=== PATIENT | male | born 1960 | race Caucasian/White ===

== ENCOUNTER → 2017-07-29 | Outpatient (CLI) | payer BC ==
[2017-07-29 18:11] LABS: BASO % 0.5 % (0.0-1.0); EOS # 0.3 10^3/uL (0.0-0.50); EOS % 5.3 % (0.0-3.0); HEMOGLOBIN 15.1 g/dl (14.0-18.0); IMMATURE GRANULOCYTE % 0.3 % (0-3.0); LYMPH # 1.4 10^3/uL (1.5-4.5); LYMPH % 22.6 % (24.0-44.0); MEAN CORPUSCULAR HEMOGLOBIN 30.8 pg (27.0-33.0); MEAN CORPUSCULAR HGB CONC 33.6 g/dl (32.0-36.5); MEAN CORPUSCULAR VOLUME 91.8 fl (80.0-96.0); MONO # 0.6 10^3/uL (0.0-0.8); MONO % 10.3 % (0.0-5.0); NEUTROPHILS # 3.8 10^3/uL (1.8-7.7); PLATELET COUNT, AUTOMATED 210 10^3/uL (150-450); RED CELL DISTRIBUTION WIDTH 13.3 % (11.5-14.5); WHITE BLOOD COUNT 6.2 10^3/uL (4.0-10.0)
[2017-07-29 18:32] LABS: ANION GAP 6 MEQ/L (8-16); BLOOD UREA NITROGEN 17 MG/DL (7-18); CALCIUM LEVEL 8.4 MG/DL (8.5-10.1); CARBON DIOXIDE LEVEL 28 MEQ/L (21-32); CHLORIDE LEVEL 108 MEQ/L (98-107); CHOLESTEROL LEVEL 226 MG/DL (<200); CHOLESTEROL RISK RATIO 3.373 (<5); CREATININE FOR GFR 1.06 MG/DL (0.70-1.30); GLOMERULAR FILTRATION RATE > 60.0 (>56); GLUCOSE, FASTING 104 MG/DL (70-100); HDL CHOLESTEROL 67 MG/DL (>40); LDL CHOLESTEROL 134.4 MG/DL (<100); NON-HDL-C 159 MG/DL; POTASSIUM SERUM 4.6 MEQ/L (3.5-5.1); SODIUM LEVEL 142 MEQ/L (136-145); TRIGLYCERIDES LEVEL 123 MG/DL (<150)
== END ==
LOC: M WUC 09:52
DX: I10 Essential (primary) hypertension (principal)
CPT/HCPCS: 80061

== ENCOUNTER → 2018-03-28 | Outpatient (CLI) | payer BC | LOC: M RAD 10:53 | DX: Z12.2 Encounter for screening for malignant neoplasm of respiratory organs (principal); Z87.891 Personal history of nicotine dependence | CPT/HCPCS: G0297 ==

== ENCOUNTER 2018-06-11 06:33 | Day surgery (SDC) | payer BC ==
[~2018-06-11] VITALS: Ht 180.3 cm; Wt 105.2 kg
[~2018-06-11 06:33] MED LIST: NS 1,000 ML IV ONE; SKEL800T5; VICO5TAB
[2018-06-11] MEDS ORDERED: PROPOFOL 200 MG/20 ML VIAL As Ordered ONE (07:07)
--- NOTE | 2018-06-11 08:32 | ROOR ---
Patient Name: Johnny Mclain Procedure Date: 06/11/2018 8:06 AM Date of : 1960 Age: 58 Room: [facility] Gender: Male Note Status: Finalized Procedure: Colonoscopy Indications: High risk colon cancer surveillance: Personal history of colonic polyps Providers: Brian LUNDY MD Referring MD: OMKAR ROBERTSON MD Requesting Provider: Medicines: Monitored Anesthesia Care Complications: No immediate complications. Procedure: Pre-Anesthesia Assessment: - The heart rate, respiratory rate, oxygen saturations, blood pressure, adequacy of pulmonary ventilation, and response to care were monitored throughout the procedure. The Colonoscope was introduced through the anus and advanced to the cecum, identified by appendiceal orifice and ileocecal valve. The colonoscopy was performed without difficulty. The patient tolerated the procedure well. The quality of the bowel preparation was good. Findings: The perianal and digital rectal examinations were normal. Three sessile polyps were found in the sigmoid colon and cecum. The polyps were diminutive in size. These polyps were removed with a cold snare. Resection and retrieval were complete. Mild sigmoid diverticulosis and small internal hemorrhoids. The exam was otherwise without abnormality on direct and retroflexion views. Impression: - Three diminutive polyps in the sigmoid colon and in the cecum, removed with a cold snare. Resected and retrieved. - Mild sigmoid diverticulosis and small internal hemorrhoids. - The examination was otherwise normal on direct and retroflexion views. Recommendation: - Repeat colonoscopy in 3 - 5 years for surveillance based on pathology results. - Await pathology results. - Telephone endoscopist for pathology results in 2 weeks. Brian Lundy MD Brian LUNDY MD 06/11/2018 8:32:35 AM This report has been signed electronically. Number of Addenda: 0 Note Initiated On: 06/11/2018 8:06 AM Estimated Blood Loss: Estimated blood loss: none.
[2018-06-11 08:50] VITALS: BP 160/99
== END 2018-06-11 09:02 | disposition home or self-care (01) ==
LOC: M OPP 06:33
PROVIDERS: ATTEND Internal Medicine Gastroenterology
DX: D12.5 Benign neoplasm of sigmoid colon (principal); D12.0 Benign neoplasm of cecum; K57.30 Diverticulosis of large intestine without perforation or abscess without bleeding; K64.8 Other hemorrhoids; Z86.010 Personal history of colon polyps

== ENCOUNTER → 2020-07-03 | Outpatient (CLI) | payer BC ==
[~2020-07-03] MED LIST changes: -NS 1,000 ML IV ONE
[2020-07-03 14:53] LABS: ALBUMIN 3.6 GM/DL (3.2-5.2); ALT/SGPT 35 U/L (12-78); BILIRUBIN,TOTAL 0.2 MG/DL (0.2-1.0); BLOOD UREA NITROGEN 21 MG/DL (7-18); CALCIUM LEVEL 8.9 MG/DL (8.8-10.2); CARBON DIOXIDE LEVEL 29 MEQ/L (21-32); CHLORIDE LEVEL 107 MEQ/L (98-107); CHOLESTEROL LEVEL 202 MG/DL (<200); CREATININE FOR GFR 1.14 MG/DL (0.70-1.30); FREE T4 0.81 NG/DL (0.76-1.46); GLOMERULAR FILTRATION RATE > 60.0 (>49); GLUCOSE, FASTING 97 MG/DL (70-100); HDL CHOLESTEROL 54 MG/DL (>40); LDL CHOLESTEROL 107 MG/DL (<100); NON-HDL-C 148 MG/DL; POTASSIUM SERUM 4.6 MEQ/L (3.5-5.1); SODIUM LEVEL 143 MEQ/L (136-145); THYROID STIMULATING HORMONE 0.516 uIU/ML (0.358-3.740); TOTAL PROTEIN 6.5 GM/DL (6.4-8.2); TRIGLYCERIDES LEVEL 204 MG/DL (<150)
--- NOTE | 2020-07-03 19:13 | REP ---
INDICATION: PERSONAL HX OF NICOTINE DEPENDENCE. COMPARISON: Comparison CT chest study 28 March 2018. Comparison chest x-ray July 13, 2015.. TECHNIQUE: Low-dose lung cancer screening study. Axial 3 mm slices are provided at lung only windows. FINDINGS: Digital preliminary administrative law judge radiograph shows tortuosity of the thoracic aorta. The lung santiago are clear. There is no evidence of pulmonary mass, infiltrate, or significant pulmonary nodule. Mild vascular calcification is noted. IMPRESSION: Lung RADS category 1 findings. Repeat screening study indicated in 1 year. <Electronically signed by Tino Wade > 07/03/20 [id number]
== END ==
LOC: M RAD 13:03 → M LAB 13:03
PROVIDERS: ATTEND Nurse Practitioner Family
DX: Z12.2 Encounter for screening for malignant neoplasm of respiratory organs (principal); Z87.891 Personal history of nicotine dependence

== ENCOUNTER → 2021-01-28 | Outpatient (CLI) | payer BC ==
--- NOTE | 2021-01-28 15:50 | REP ---
INDICATION: LOCALIZED SWELLING, MASS AND LUMP, RIGHT UPPER LIMB. COMPARISON: None. TECHNIQUE: Two views of the right clavicle FINDINGS: There is no acute fracture or destructive osseous lesion. The acromioclavicular joint is within normal limits. IMPRESSION: Within normal limits <Electronically signed by Danilo Solis > 01/28/21 [id number]
--- NOTE | 2021-01-28 15:51 | REP ---
INDICATION: LOCALIZED SWELLING, MASS AND LUMP, RIGHT UPPER LIMB. COMPARISON: None. TECHNIQUE: Three views of the right shoulder were performed. FINDINGS: The acromioclavicular and glenohumeral relationships are within normal limits. There is no acute fracture or destructive osseous lesion. IMPRESSION: Within normal limits. If a soft tissue mass is of clinical concern then I would recommend an MRI. <Electronically signed by Danilo Solis > 01/28/21 [id number]
== END ==
LOC: M PLALAB 15:13
PROVIDERS: ATTEND Nurse Practitioner Family
DX: R22.31 Localized swelling, mass and lump, right upper limb (principal)

== ENCOUNTER → 2021-01-29 | Outpatient (CLI) | payer BC ==
[2021-01-29 10:51] LABS: ALBUMIN 3.6 GM/DL (3.2-5.2); ALT/SGPT 33 U/L (12-78); BILIRUBIN,TOTAL 0.8 MG/DL (0.2-1.0); BLOOD UREA NITROGEN 14 MG/DL (7-18); CALCIUM LEVEL 8.8 MG/DL (8.8-10.2); CARBON DIOXIDE LEVEL 26 MEQ/L (21-32); CHLORIDE LEVEL 109 MEQ/L (98-107); CHOLESTEROL LEVEL 227 MG/DL (<200); CHOLESTEROL RISK RATIO 4.365 (<5); GLOMERULAR FILTRATION RATE > 60.0 (>49); GLUCOSE, FASTING 98 MG/DL (70-100); HDL CHOLESTEROL 52 MG/DL (>40); LDL CHOLESTEROL 150 MG/DL (<100); NON-HDL-C 175 MG/DL; SODIUM LEVEL 140 MEQ/L (136-145); TOTAL PROTEIN 6.7 GM/DL (6.4-8.2); TRIGLYCERIDES LEVEL 125 MG/DL (<150)
== END ==
LOC: M PLALAB 07:15
PROVIDERS: ATTEND Nurse Practitioner Family
DX: I10 Essential (primary) hypertension (principal)

== ENCOUNTER → 2021-02-12 | Outpatient (CLI) | payer BC ==
--- NOTE | 2021-02-12 08:42 | REP ---
INDICATION: R SHOULDER MASS/LUMP/R22.31. COMPARISON: Comparison radiographs of the right shoulder are from January 28, 2021. TECHNIQUE: Targeted sonography right shoulder area superior to the clavicle. FINDINGS: Soft tissue sonography in the region of interest over the right clavicle demonstrates a loculated fluid collection with dimensions 1.6 x 0.9 x 1.9 cm overlying a shadowing bony cortex. There is no evidence of Doppler flow. 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 IMPRESSION: Findings most compatible with a 1.9 cm ganglion cyst associated with the AC joint. Clinical follow-up is advised. If further evaluation and confirmation is desired, shoulder MRI study May could be considered. <Electronically signed by Tino Wade > 02/12/21 0897
== END ==
LOC: M WHC 07:14
PROVIDERS: ATTEND Nurse Practitioner Family
DX: R22.31 Localized swelling, mass and lump, right upper limb (principal); M85.411 Solitary bone cyst, right shoulder

== ENCOUNTER → 2021-07-19 | Outpatient (CLI) | payer BC ==
[2021-07-19 12:44] LABS: ALBUMIN 3.7 GM/DL (3.2-5.2); ALT/SGPT 42 U/L (12-78); BILIRUBIN,TOTAL 0.2 MG/DL (0.2-1.0); BLOOD UREA NITROGEN 14 MG/DL (7-18); CALCIUM LEVEL 8.8 MG/DL (8.8-10.2); CARBON DIOXIDE LEVEL 26 MEQ/L (21-32); CHLORIDE LEVEL 106 MEQ/L (98-107); CHOLESTEROL LEVEL 210 MG/DL (<200); CHOLESTEROL RISK RATIO 3.888 (<5); CREATININE FOR GFR 1.14 MG/DL (0.70-1.30); GLOMERULAR FILTRATION RATE > 60.0 (>49); GLUCOSE, FASTING 102 MG/DL (70-100); HDL CHOLESTEROL 54 MG/DL (>40); LDL CHOLESTEROL 133 MG/DL (<100); NON-HDL-C 156 MG/DL; POTASSIUM SERUM 4.4 MEQ/L (3.5-5.1); SODIUM LEVEL 140 MEQ/L (136-145); TOTAL PROTEIN 6.7 GM/DL (6.4-8.2); TRIGLYCERIDES LEVEL 116 MG/DL (<150)
== END ==
LOC: M WUC 09:08
PROVIDERS: ATTEND Nurse Practitioner Family
DX: I10 Essential (primary) hypertension (principal)

== ENCOUNTER → 2021-08-20 | Outpatient (CLI) | payer BC | LOC: M RAD 12:50 | PROVIDERS: ATTEND Nurse Practitioner Family | DX: Z12.2 Encounter for screening for malignant neoplasm of respiratory organs (principal); F17.210 Nicotine dependence, cigarettes, uncomplicated ==

== ENCOUNTER → 2022-03-18 | Outpatient (CLI) | payer BC | LOC: M SOG 08:27 | PROVIDERS: ATTEND Orthopaedic Surgery Adult Reconstructive Orthopaedic Surgery | DX: M25.561 Pain in right knee (principal); Z53.8 Procedure and treatment not carried out for other reasons ==

== ENCOUNTER → 2022-03-25 | Outpatient (CLI) | payer BC | LOC: M OUTALCOH 07:29 | PROVIDERS: ATTEND Psychiatry & Neurology Psychiatry | DX: Z13.39 Encounter for screening examination for other mental health and behavioral disorders (principal) ==

== ENCOUNTER 2022-04-06 07:51 | Outpatient (RCR) | payer BC | END 2022-05-04 | LOC: M OUTALCOH 07:51 | PROVIDERS: ATTEND Psychiatry & Neurology Psychiatry | DX: Z03.89 Encounter for observation for other suspected diseases and conditions ruled out (principal); Z72.0 Tobacco use ==

== ENCOUNTER 2022-05-27 05:57 | Inpatient (IN) | payer BC ==
[~2022-05-27] VITALS: Ht 182.9 cm; Wt 117.2 kg
[2022-05-27 06:48] LABS: BASO % 0.4 % (0.0-1.0); EOS # 0.1 10^3/uL (0.0-0.5); EOS % 1.9 % (0.0-3.0); HEMATOCRIT 41.4 % (42.0-52.0); HEMOGLOBIN 13.7 g/dl (13.5-17.5); LYMPH # 1.6 10^3/uL (1.5-5.0); LYMPH % 22.2 % (24.0-44.0); MEAN CORPUSCULAR HEMOGLOBIN 31.1 pg (27.0-33.0); MEAN CORPUSCULAR HGB CONC 33.1 g/dl (32.0-36.5); MEAN CORPUSCULAR VOLUME 93.9 fl (80.0-96.0); MONO # 0.9 10^3/uL (0.0-0.8); MONO % 11.7 % (2.0-8.0); NEUTROPHILS # 4.7 10^3/uL (1.5-8.5); NEUTROPHILS % 63.4 % (36.0-66.0); PLATELET COUNT, AUTOMATED 185 10^3/uL (150-450); RED BLOOD COUNT 4.41 10^6/uL (4.30-6.10); WHITE BLOOD COUNT 7.4 10^3/uL (4.0-10.0)
[2022-05-27 07:17] LABS: CK-MB VALUE MASS < 1.0 NG/ML (<3.6)
[2022-05-27 07:19] LABS: ALBUMIN 3.2 G/DL (3.2-5.2); ALKALINE PHOSPHATASE 101 U/L (46-116); ALT/SGPT 51 U/L (7.0-40); AST/SGOT 32 U/L (<34); BILIRUBIN,DIRECT < 0.1 MG/DL (<0.4); BILIRUBIN,TOTAL 0.2 MG/DL (0.3-1.2); BLOOD UREA NITROGEN 24 MG/DL (9-23); CALCIUM LEVEL 8.4 MG/DL (8.3-10.6); CARBON DIOXIDE LEVEL 20 MMOL/L (20-31); CHLORIDE LEVEL 111 MMOL/L (98-107); CPK CREATINE PHOSPHOKINASE 43 U/L (46-171); CREATININE FOR GFR 0.91 MG/DL (0.70-1.30); GLOMERULAR FILTRATION RATE > 60.0 (>49); GLUCOSE, FASTING 105 MG/DL (74-106); MB/CK RELATIVE INDEX 2.32 (< OR =4); POTASSIUM SERUM 4.6 MMOL/L (3.5-5.1); SODIUM LEVEL 142 MMOL/L (136-145); TOTAL PROTEIN 5.7 G/DL (5.7-8.2)
[2022-05-27 07:22] LABS: THYROID STIMULATING HORMONE 2.278 uIU/ML (0.55-4.78)
[2022-05-27] MEDS ORDERED: METOPROLOL TART 50 MG TAB PO ONE (07:25)
[2022-05-27] MEDS: METOPROLOL 5 MG/5 ML VIAL IV PRN ×3 (07:40→07:56)
[2022-05-27 07:54] LABS: ETHYL ALCOHOL (ETHANOL) 0.003 % (0.000-0.010)
[2022-05-27] MEDS ORDERED: APIXABAN 5 MG TAB (ELIQUIS) PO ONE (08:35)
[2022-05-27] MEDS ORDERED: FUROSEMIDE 40MG/4ML VIAL IV ONE (08:35)
[2022-05-27] MEDS ORDERED: AMLO1TAB25 PO (08:46)
[2022-05-27] MEDS ORDERED: VENL75TA2 PO (08:46)
[2022-05-27] MEDS ORDERED: HOME MED LIST COMPLETE! XX SCH (08:50)
[2022-05-27] MEDS ORDERED: FUROSEMIDE 40MG/4ML VIAL IV SCH (09:00)
[2022-05-27 09:35] LABS: INR 0.97; PROTHROMBIN TIME 13.1 SECONDS (12.5-14.5)
[2022-05-27 09:36] LABS: PARTIAL THROMBOPLASTIN TIME 29.2 SECONDS (24.8-34.2)
[2022-05-27 09:39] LABS: D-DIMER QUANT 371.79 ng/ml (<500)
[2022-05-27 09:52] LABS: C REACTIVE PROTEIN QUANTITATIV 0.9 MG/DL (<1.0)
[2022-05-27 09:53] LABS: BILIRUBIN,DIRECT 0.1 MG/DL (<0.4)
[2022-05-27 09:55] LABS: ALBUMIN 3.2 G/DL (3.2-5.2); BILIRUBIN,TOTAL 0.3 MG/DL (0.3-1.2); TOTAL PROTEIN 5.9 G/DL (5.7-8.2)
[2022-05-27 09:56] LABS: FERRITIN 139.6 NG/ML (10.5-307.3)
[2022-05-27] MEDS: METOPROLOL 5 MG/5 ML VIAL IV SCH ×3 (11:27→11:55)
[2022-05-27] MEDS ORDERED: METOPROLOL TART 25 MG TABLET PO SCH (12:00)
[2022-05-27] MEDS ORDERED: REMDESIVIR 200 MG in NS 250 ML IV ONE (12:00)
[2022-05-27] MEDS ORDERED: SODIUM CHLORIDE 0.9% INJ 10 ML SYR IV ONE (13:00)
[2022-05-27] MEDS ORDERED: DIGOXIN INJ 0.5 MG/2 ML AMP IV STA (13:09)
[2022-05-27 13:34] LABS: BLOOD UREA NITROGEN 23 MG/DL (9-23); CALCIUM LEVEL 8.7 MG/DL (8.3-10.6); CARBON DIOXIDE LEVEL 23 MMOL/L (20-31); CHLORIDE LEVEL 108 MMOL/L (98-107); CREATININE FOR GFR 1.04 MG/DL (0.70-1.30); GLOMERULAR FILTRATION RATE > 60.0 (>49); GLUCOSE, FASTING 122 MG/DL (74-106); POTASSIUM SERUM 4.8 MMOL/L (3.5-5.1); SODIUM LEVEL 140 MMOL/L (136-145)
[2022-05-27] MEDS ORDERED: diltiaZEM 125 MG in NS 100 ML IV SCH ×3 (15:00→19:55)
[2022-05-27 15:26] VITALS: BP 125/76
[2022-05-27] MEDS: FUROSEMIDE 40MG/4ML VIAL IV SCH ×2 (15:55→20:51)
[2022-05-27 16:00] VITALS: O2SAT 95
[2022-05-27 16:30] VITALS: BP 112/84
[2022-05-27 17:04] VITALS: BP 119/79
[2022-05-27 17:04] LABS: APPEARANCE, URINE MANUAL CLEAR (CLEAR); BILIRUBIN, URINE MANUAL NEGATIVE (NEGATIVE); BLOOD URINE MANUAL NEGATIVE (NEGATIVE); COLOR, URINE MANUAL LT YELLOW (YELLOW); KETONE, URINE MANUAL NEGATIVE (NEGATIVE); LEUKOCYTE ESTERASE, URINE MAN NEGATIVE (NEGATIVE); NITRITE, URINE MANUAL NEGATIVE (NEGATIVE); PROTEIN, URINE MANUAL NEGATIVE (NEGATIVE); UROBILINOGEN, URINE MANUAL NORMAL (NORMAL)
[2022-05-27 17:05] LABS: GLUCOSE, URINE (UA) MANUAL TRACE(50 MG/DL) mg/dL (NEGATIVE)
[2022-05-27 18:00] VITALS: BP 103/51
[2022-05-27 18:33] LABS: BLOOD UREA NITROGEN 26 MG/DL (9-23); CALCIUM LEVEL 8.6 MG/DL (8.3-10.6); CARBON DIOXIDE LEVEL 21 MMOL/L (20-31); CHLORIDE LEVEL 106 MMOL/L (98-107); CREATININE FOR GFR 1.09 MG/DL (0.70-1.30); GLOMERULAR FILTRATION RATE > 60.0 (>49); GLUCOSE, FASTING 254 MG/DL (74-106); POTASSIUM SERUM 4.5 MMOL/L (3.5-5.1); SODIUM LEVEL 141 MMOL/L (136-145)
[2022-05-27 20:00] VITALS: BP 128/84; O2SAT 96
[2022-05-27] MEDS ORDERED: AMIODARONE HCL 150 MG in IV 1 EA IV ONE (20:30)
[2022-05-27] MEDS ORDERED: AMIODARONE HCL 360 MG in IV 1 EA IV SCH (20:40)
[2022-05-27] MEDS: APIXABAN 5 MG TAB (ELIQUIS) PO SCH (20:51)
[2022-05-27] MEDS: DIGOXIN INJ 0.5 MG/2 ML AMP IV SCH (21:09)
[2022-05-28] VITALS (9 sets, daily range): BP systolic 93–130; BP diastolic 37–86; O2SAT 92–95
[2022-05-28 01:08] LABS: BLOOD UREA NITROGEN 26 MG/DL (9-23); CALCIUM LEVEL 8.8 MG/DL (8.3-10.6); CARBON DIOXIDE LEVEL 27 MMOL/L (20-31); CHLORIDE LEVEL 105 MMOL/L (98-107); CREATININE FOR GFR 1.11 MG/DL (0.70-1.30); GLOMERULAR FILTRATION RATE > 60.0 (>49); GLUCOSE, FASTING 134 MG/DL (74-106); POTASSIUM SERUM 4.2 MMOL/L (3.5-5.1); SODIUM LEVEL 141 MMOL/L (136-145)
[2022-05-28] MEDS: AMIODARONE HCL 360 MG in IV 1 EA IV SCH ×2 (03:10→14:54)
[2022-05-28] MEDS: FUROSEMIDE 40MG/4ML VIAL IV SCH (03:10)
[2022-05-28] MEDS: DIGOXIN INJ 0.5 MG/2 ML AMP IV SCH (03:11)
[2022-05-28 06:33] LABS: BILIRUBIN,DIRECT < 0.1 MG/DL (<0.4); DIGOXIN LEVEL 0.8 NG/ML (0.8-2.0)
[2022-05-28 06:41] LABS: ALBUMIN 3.5 G/DL (3.2-5.2); ALKALINE PHOSPHATASE 107 U/L (46-116); ALT/SGPT 53 U/L (7.0-40); AST/SGOT 25 U/L (<34); BILIRUBIN,TOTAL 0.2 MG/DL (0.3-1.2); BLOOD UREA NITROGEN 25 MG/DL (9-23); CALCIUM LEVEL 8.5 MG/DL (8.3-10.6); CARBON DIOXIDE LEVEL 23 MMOL/L (20-31); CHLORIDE LEVEL 106 MMOL/L (98-107); CREATININE FOR GFR 1.07 MG/DL (0.70-1.30); GLOMERULAR FILTRATION RATE > 60.0 (>49); GLUCOSE, FASTING 114 MG/DL (74-106); POTASSIUM SERUM 4.2 MMOL/L (3.5-5.1); SODIUM LEVEL 141 MMOL/L (136-145); TOTAL PROTEIN 6.4 G/DL (5.7-8.2)
[2022-05-28] MEDS ORDERED: DIGOXIN INJ 0.5 MG/2 ML AMP IV ONE ×2 (07:50→14:00)
[2022-05-28] MEDS: APIXABAN 5 MG TAB (ELIQUIS) PO SCH ×2 (08:06→21:57)
[2022-05-28] MEDS: METOPROLOL TART 50 MG TAB PO SCH ×3 (08:12→21:57)
[2022-05-28] MEDS ORDERED: FUROSEMIDE injection 250 MG in D5W 225 ML IV SCH (12:00)
[2022-05-28] MEDS: REMDESIVIR 100 MG in NS 250 ML IV SCH (12:54)
[2022-05-28] MEDS: SODIUM CHLORIDE 0.9% INJ 10 ML SYR IV SCH (13:00)
[2022-05-28 19:09] LABS: CK-MB VALUE MASS < 1.0 NG/ML (<3.6); MAGNESIUM LEVEL 1.9 MG/DL (1.8-2.4)
[2022-05-28 19:10] LABS: BLOOD UREA NITROGEN 32 MG/DL (9-23); CALCIUM LEVEL 8.5 MG/DL (8.3-10.6); CARBON DIOXIDE LEVEL 23 MMOL/L (20-31); CHLORIDE LEVEL 108 MMOL/L (98-107); CREATININE FOR GFR 0.66 MG/DL (0.70-1.30); GLOMERULAR FILTRATION RATE > 60.0 (>49); GLUCOSE, FASTING 125 MG/DL (74-106); POTASSIUM SERUM 4.5 MMOL/L (3.5-5.1); SODIUM LEVEL 142 MMOL/L (136-145)
[2022-05-28 19:11] LABS: CPK CREATINE PHOSPHOKINASE 37 U/L (46-171)
[2022-05-29] VITALS (7 sets, daily range): BP systolic 89–135; BP diastolic 55–91; O2SAT 92–96
[2022-05-29] MEDS: METOPROLOL TART 50 MG TAB PO SCH ×3 (01:13→13:38)
[2022-05-29 05:12] LABS: INR 1.25; PARTIAL THROMBOPLASTIN TIME 33.6 SECONDS (24.8-34.2)
[2022-05-29 05:25] LABS: LDH LACTATE DEHYDROGENASE 173 U/L (120-246)
[2022-05-29 05:26] LABS: BILIRUBIN,DIRECT 0.1 MG/DL (<0.4); DIGOXIN LEVEL 0.7 NG/ML (0.8-2.0)
[2022-05-29 05:30] LABS: FERRITIN 104.5 NG/ML (10.5-307.3)
[2022-05-29 05:37] LABS: ALBUMIN 3.2 G/DL (3.2-5.2); ALKALINE PHOSPHATASE 89 U/L (46-116); ALT/SGPT 46 U/L (7.0-40); AST/SGOT 20 U/L (<34); BILIRUBIN,TOTAL 0.3 MG/DL (0.3-1.2); BLOOD UREA NITROGEN 29 MG/DL (9-23); CARBON DIOXIDE LEVEL 25 MMOL/L (20-31); CHLORIDE LEVEL 106 MMOL/L (98-107); CPK CREATINE PHOSPHOKINASE 31 U/L (46-171); CREATININE FOR GFR 1.13 MG/DL (0.70-1.30); GLOMERULAR FILTRATION RATE > 60.0 (>49); GLUCOSE, FASTING 113 MG/DL (74-106); POTASSIUM SERUM 4.5 MMOL/L (3.5-5.1); SODIUM LEVEL 142 MMOL/L (136-145); TOTAL PROTEIN 5.7 G/DL (5.7-8.2)
[2022-05-29] MEDS ORDERED: DIGOXIN INJ 0.5 MG/2 ML AMP IV STA (08:45)
[2022-05-29] MEDS: NICOTINE 21MG/24HR 1 EA TRANSDERMAL TD SCH (09:00)
[2022-05-29] MEDS: APIXABAN 5 MG TAB (ELIQUIS) PO SCH ×2 (09:14→20:27)
[2022-05-29] MEDS: AMIODARONE 200 MG TAB (PACERONE) PO SCH ×2 (09:14→20:28)
[2022-05-29] MEDS ORDERED: NICOTINE POLACRILEX 2 MG GUM PO ONE (12:00)
[2022-05-29] MEDS: REMDESIVIR 100 MG in NS 250 ML IV SCH (13:38)
[2022-05-29] MEDS: SODIUM CHLORIDE 0.9% INJ 10 ML SYR IV SCH (13:39)
[2022-05-29] MEDS: NICOTINE POLACRILEX 2 MG GUM PO PRN (14:42)
[2022-05-29] MEDS ORDERED: DIGOXIN INJ 0.5 MG/2 ML AMP IV ONE (15:00)
[2022-05-29] MEDS: METOPROLOL TART 25 MG TABLET PO SCH (17:59)
[2022-05-29 18:46] LABS: BLOOD UREA NITROGEN 30 MG/DL (9-23); CALCIUM LEVEL 8.2 MG/DL (8.3-10.6); CARBON DIOXIDE LEVEL 23 MMOL/L (20-31); CHLORIDE LEVEL 107 MMOL/L (98-107); CREATININE FOR GFR 1.22 MG/DL (0.70-1.30); GLOMERULAR FILTRATION RATE > 60.0 (>49); GLUCOSE, FASTING 130 MG/DL (74-106); POTASSIUM SERUM 4.6 MMOL/L (3.5-5.1); SODIUM LEVEL 141 MMOL/L (136-145)
[2022-05-29] MEDS ORDERED: METOPROLOL TART 25 MG TABLET PO SCH (20:00)
[2022-05-30] VITALS: BP 98/70; O2SAT 95
[2022-05-30 04:00] VITALS: BP 107/80; O2SAT 96
[2022-05-30 05:45] LABS: BLOOD UREA NITROGEN 29 MG/DL (9-23); CALCIUM LEVEL 8.1 MG/DL (8.3-10.6); CARBON DIOXIDE LEVEL 26 MMOL/L (20-31); CHLORIDE LEVEL 106 MMOL/L (98-107); CREATININE FOR GFR 1.18 MG/DL (0.70-1.30); GLOMERULAR FILTRATION RATE > 60.0 (>49); GLUCOSE, FASTING 105 MG/DL (74-106); POTASSIUM SERUM 4.7 MMOL/L (3.5-5.1); SODIUM LEVEL 141 MMOL/L (136-145)
[2022-05-30] MEDS: METOPROLOL TART 25 MG TABLET PO SCH ×2 (06:00)
[2022-05-30] MEDS ORDERED: DIGOXIN INJ 0.5 MG/2 ML AMP IV ONE (07:15)
[2022-05-30] MEDS ORDERED: MIDODRINE 5 MG TAB PO ONE (07:15)
[2022-05-30] MEDS ORDERED: LOPR1TAB7 PO (07:20)
[2022-05-30] MEDS ORDERED: AMIO400T7 PO (07:20)
[2022-05-30] MEDS ORDERED: LASI20TA3 PO (07:20)
[2022-05-30] MEDS ORDERED: DIGO0.123 PO ×2 (07:20→11:02)
[2022-05-30] MEDS ORDERED: ELIQ5TAB PO (07:20)
[2022-05-30] MEDS ORDERED: SELF1KIT MC (07:20)
[2022-05-30] MEDS ORDERED: NICO21PAT TD (07:55)
[2022-05-30 08:00] VITALS: BP 148/90
[2022-05-30] MEDS: APIXABAN 5 MG TAB (ELIQUIS) PO SCH (08:46)
[2022-05-30] MEDS: AMIODARONE 200 MG TAB (PACERONE) PO SCH (08:46)
[2022-05-30] MEDS: NICOTINE POLACRILEX 2 MG GUM PO PRN (08:46)
[2022-05-30 08:47] VITALS: BP 148/90
[2022-05-30] MEDS ORDERED: METOPROLOL TARTRATE 100MG TAB PO SCH (09:00)
[2022-05-30] MEDS: NICOTINE 21MG/24HR 1 EA TRANSDERMAL TD SCH (09:00)
[2022-05-30 09:02] LABS: DIGOXIN LEVEL 0.9 NG/ML (0.8-2.0)
[2022-05-30 10:35] VITALS: BP 108/58
[2022-05-30] MEDS ORDERED: NICO2GUM40 PO (11:06)
[2022-05-30] MEDS: REMDESIVIR 100 MG in NS 250 ML IV SCH (11:19)
[2022-05-30] MEDS: SODIUM CHLORIDE 0.9% INJ 10 ML SYR IV SCH (11:19)
[2022-06-01 17:07] LABS: BODY FLUID CULTURE Not indicated. (.); LEGIONELLA ANTIGEN URINE Negative (Negative); ORGANISM ID Not indicated. (.); SPECIMEN SOURCE Urine (.); URINE STREP PNEUMONIAE ANTIGEN Negative (Negative)
== END 2022-05-30 14:00 | disposition home or self-care (01) | DRG 137 ==
LOC: M ED 05:57 → M ED INP 08:37 → ENRESERV 13:47 → M ICU 15:18
PROVIDERS: ADMIT General Practice; ATTEND General Practice
PROC: B246ZZZ Ultrasonography of Right and Left Heart (ICD-10-PCS; principal; 2022-05-27)
PROC: XW033E5 Introduction of Remdesivir Anti-infective into Peripheral Vein, Percutaneous Approach, New Technology Group 5 (ICD-10-PCS; 2022-05-27)
PROC: 3E0333Z Introduction of Anti-inflammatory into Peripheral Vein, Percutaneous Approach (ICD-10-PCS; 2022-05-30)
DX: U07.1 COVID-19 (principal); I50.31 Acute diastolic (congestive) heart failure; I11.0 Hypertensive heart disease with heart failure; I48.19 Other persistent atrial fibrillation; F17.210 Nicotine dependence, cigarettes, uncomplicated; I16.0 Hypertensive urgency; E66.9 Obesity, unspecified; Z68.32 Body mass index [BMI] 32.0-32.9, adult; Z79.899 Other long term (current) drug therapy; R19.7 Diarrhea, unspecified

== ENCOUNTER 2022-06-02 14:13 | Emergency (ER) | payer BC ==
[~2022-06-02] VITALS: Ht 182.9 cm; Wt 118.4 kg
[~2022-06-02 14:13] MED LIST changes: +AMIO400T7 PO; +AMLO1TAB25 PO; +DIGO0.123 PO; +ELIQ5TAB PO; +LASI20TA3 PO; +LOPR1TAB7 PO; +NICO21PAT TD; +NICO2GUM40 PO; +SELF1KIT MC; +VENL75TA2 PO
[2022-06-02 14:14] VITALS: BP 136/84
== END 2022-06-02 16:20 | disposition left against medical advice (07) ==
LOC: M ED 14:13
DX: Z53.21 Procedure and treatment not carried out due to patient leaving prior to being seen by health care provider (principal)

== ENCOUNTER → 2022-08-08 | Outpatient (CLI) | payer BC | LOC: M CARPUL 14:14 | PROVIDERS: ATTEND Nurse Practitioner Family | DX: I48.91 Unspecified atrial fibrillation (principal); Z79.01 Long term (current) use of anticoagulants ==

== ENCOUNTER → 2022-11-11 | Outpatient (CLI) | payer BC | LOC: M RAD 07:32 | PROVIDERS: ATTEND Internal Medicine Critical Care Medicine | DX: Z87.891 Personal history of nicotine dependence (principal) ==

== ENCOUNTER 2023-09-18 11:01 | Day surgery (SDC) | payer BC ==
[~2023-09-18] VITALS: Ht 182.9 cm; Wt 114.8 kg
[~2023-09-18 11:01] MED LIST changes: +AMIO400T2 PO; -AMIO400T7 PO; +ATOR40TA75 PO; +BUPR-71 PO; +METO100T5 PO
[2023-09-18] MEDS ORDERED: propofoL 200 MG/20 ML VIAL As Ordered ONE (13:24)
[2023-09-18 13:43] VITALS: TEMP 98.5
[2023-09-18 14:03] VITALS: BP 136/94; O2SAT 96
== END 2023-09-18 14:07 | disposition home or self-care (01) ==
LOC: M OPP 11:01
PROVIDERS: ATTEND Internal Medicine Gastroenterology
DX: Z12.11 Encounter for screening for malignant neoplasm of colon (principal); Z86.010 Personal history of colon polyps; Z80.0 Family history of malignant neoplasm of digestive organs; D12.4 Benign neoplasm of descending colon; D12.5 Benign neoplasm of sigmoid colon; K57.30 Diverticulosis of large intestine without perforation or abscess without bleeding; K64.8 Other hemorrhoids; F17.220 Nicotine dependence, chewing tobacco, uncomplicated; I48.91 Unspecified atrial fibrillation; I10 Essential (primary) hypertension; Z79.01 Long term (current) use of anticoagulants; Z79.02 Long term (current) use of antithrombotics/antiplatelets; Z79.899 Other long term (current) drug therapy

== ENCOUNTER → 2023-12-11 | Outpatient (CLI) | payer BC ==
[2023-12-11 10:56] LABS: BASO # 0.1 10^3/uL (0.0-0.2); BASO % 0.6 % (0.0-1.0); EOS # 0.3 10^3/uL (0.0-0.5); EOS % 3.2 % (0.0-3.0); HEMATOCRIT 46.3 % (42.0-52.0); HEMOGLOBIN 15.4 g/dl (13.5-17.5); LYMPH # 1.6 10^3/uL (1.5-5.0); LYMPH % 19.7 % (24.0-44.0); MEAN CORPUSCULAR HEMOGLOBIN 31.9 pg (27.0-33.0); MEAN CORPUSCULAR HGB CONC 33.3 g/dl (32.0-36.5); MEAN CORPUSCULAR VOLUME 95.9 fl (80.0-96.0); MONO # 0.9 10^3/uL (0.0-0.8); MONO % 11.1 % (2.0-8.0); NEUTROPHILS # 5.1 10^3/uL (1.5-8.5); NEUTROPHILS % 65.1 % (36.0-66.0); PLATELET COUNT, AUTOMATED 212 10^3/uL (150-450); RED BLOOD COUNT 4.83 10^6/uL (4.30-6.10); WHITE BLOOD COUNT 7.9 10^3/uL (4.0-10.0)
[2023-12-11 11:27] LABS: ALBUMIN 3.6 G/DL (3.2-5.2); ALKALINE PHOSPHATASE 133 U/L (46-116); ALT/SGPT 33 U/L (7.0-40); AST/SGOT 14 U/L (<34); BILIRUBIN,TOTAL 0.7 MG/DL (0.3-1.2); BLOOD UREA NITROGEN 18 MG/DL (9-23); CALCIUM LEVEL 8.9 MG/DL (8.3-10.6); CARBON DIOXIDE LEVEL 29 MMOL/L (20-31); CHLORIDE LEVEL 107 MMOL/L (98-107); CHOLESTEROL LEVEL 167 MG/DL (<200); CHOLESTEROL RISK RATIO 3.64 (<5); CREATININE FOR GFR 1.26 MG/DL (0.70-1.30); GLOMERULAR FILTRATION RATE > 60.0 (>49); GLUCOSE, FASTING 95 MG/DL (74-106); HDL CHOLESTEROL 45.8 MG/DL (>40); LDL CHOLESTEROL 92.2 MG/DL (<100); NON-HDL-C 121.2 MG/DL; POTASSIUM SERUM 4.9 MMOL/L (3.5-5.1); PSA SCREENING 1.49 NG/ML (< 4.00); SODIUM LEVEL 138 MMOL/L (136-145); TOTAL PROTEIN 6.2 G/DL (5.7-8.2); TRIGLYCERIDES LEVEL 145 MG/DL (<150)
== END ==
LOC: M PLALAB 09:11
PROVIDERS: ATTEND Nurse Practitioner Family
DX: I10 Essential (primary) hypertension (principal); Z80.42 Family history of malignant neoplasm of prostate
CPT/HCPCS: 36415; 80053; 80061; 85025; G0103

== ENCOUNTER → 2024-03-29 | Outpatient (CLI) | payer BC | LOC: M RAD 08:48 | PROVIDERS: ATTEND Nurse Practitioner Family | DX: Z12.2 Encounter for screening for malignant neoplasm of respiratory organs (principal); F17.210 Nicotine dependence, cigarettes, uncomplicated; J47.9 Bronchiectasis, uncomplicated ==

== ENCOUNTER → 2024-05-21 | Outpatient (REF) | payer BC | LOC: M SFHCDERM 17:50 | PROVIDERS: ATTEND Nurse Practitioner Family | DX: C44.629 Squamous cell carcinoma of skin of left upper limb, including shoulder (principal); L87.2 Elastosis perforans serpiginosa ==

== ENCOUNTER → 2024-06-14 | Outpatient (REF) | payer BC | LOC: M LAB REF 15:47 | PROVIDERS: ATTEND Surgery | DX: C44.629 Squamous cell carcinoma of skin of left upper limb, including shoulder (principal) ==

== ENCOUNTER → 2025-04-25 | Outpatient (CLI) | payer BC, MEDICARE | LOC: M RAD 13:53 | PROVIDERS: ATTEND Nurse Practitioner Family | DX: F17.210 Nicotine dependence, cigarettes, uncomplicated (principal) ==